=== PATIENT | female | born 1960 | race African-American/Black ===

== ENCOUNTER 2020-03-01 09:54 | Inpatient (IN) | payer MEDICAID, OTHER ==
[~2020-03-01] VITALS: Ht 162.6 cm; Wt 100.6 kg
[2020-03-01 11:04] LABS: Basophils # (auto) 0.1 10 ^3/uL (0-0.2); Basophils % (auto) 0.3 % (0.0-2.0); Eosinophils # (auto) 0 10 ^3/uL (0-0.8); Mean Corpuscular Hgb Conc. 32.2 g/dL (32.0-36.0); Monocytes # (auto) 0.7 10 ^3/uL (0-1.3); White Blood Cell 21.1 10^3/uL (4.4-10.8)
[2020-03-01 11:05] LABS: Eosinophils % (auto) 0.1 % (0.0-7.0); Hematocrit 54.2 % (36.0-46.0); Hemoglobin 17.5 g/dL (12.2-16.2); Lymphocytes # (auto) 1.2 10 ^3/uL (0.4-5.4); Lymphocytes % (auto) 5.5 % (10.0-50.0); Mean Corpuscular Hemoglobin 30.2 pg (28.0-32.0); Mean Corpuscular Volume 93.8 fL (80.0-100.0); Monocytes % (auto) 3.2 % (0.0-12.0); Neutrophils # (auto) 19.2 10 ^3/uL (1.6-8.6); Neutrophils % (auto) 90.9 % (37.0-80.0); Platelet Count (auto) 367 10^3/uL (140-450); Red Blood Cells 5.78 10^6/uL (4.0-5.20)
[2020-03-01 11:18] LABS: Urine Bacteria NONE SEEN /hpf (None Seen); Urine Blood Negative /uL (Negative); Urine Specific Gravity 1.028 (1.001-1.035); Urine WBC 1 /hpf (0 - 5)
[2020-03-01 11:21] LABS: Albumin 4.1 g/dL (3.4-5.0); Calcium 9.9 mg/dL (8.5-10.1)
[2020-03-01 11:29] LABS: BUN/Creatinine Ratio 28.5
[2020-03-01 11:46] LABS: Potassium 5.9 mmol/L (3.5-5.1)
[2020-03-01] MEDS ORDERED: SODIUM CHLORIDE 0.9% 3,000 ML IV ONE (12:00)
[2020-03-01] MEDS ORDERED: InsuLIN R (HUMAN) 100 UNITS in SODIUM CHL 0.9% 99 ML IV SCH (14:42)
[2020-03-01] MEDS ORDERED: DEXTROSE (50%) 50ML SYRG IV PRN ×2 (14:45→17:15)
[2020-03-01] MEDS ORDERED: INSULIN LANTUS (GLARGINE) 1 /0.01ml (100units/ml) SC ONE (14:45)
[2020-03-01] MEDS ORDERED: InsuLIN REG 1unit/0.01ml Soln (100units/ml) IV ONE (14:45)
[2020-03-01] MEDS: ACCU-CHEK COMFORT CURVE STRIP VI SCH ×7 (15:17→23:55)
[2020-03-01] MEDS ORDERED: KETOCONAZOLE 2 % TOPICAL CREAM 15GM TOP ONE (16:00)
[2020-03-01] MEDS ORDERED: FLUCONAZOLE 200MG/100ML 100 ML IV ONE (16:00)
[2020-03-01] MEDS ORDERED: NITROGLYCERIN 0.4 MG SL TAB SL PRN (17:15)
[2020-03-01] MEDS ORDERED: SODIUM CHLORIDE 0.9% 1,000 ML IV ONE (17:15)
[2020-03-01] MEDS ORDERED: MORPHINE SULF INJ 2 MG/ML SYRINGE 1ML IV PRN (17:15)
[2020-03-01] MEDS: InsuLIN R (HUMAN) 100 UNITS in SODIUM CHL 0.9% 99 ML IV SCH ×2 (17:50→18:09)
[2020-03-01 17:57] LABS: Anion Gap 14 (5-15); BUN/Creatinine Ratio 30.1; Blood Urea Nitrogen 37 mg/dL (7-18); Calcium 8.9 mg/dL (8.5-10.1); Carbon Dioxide 22 mmol/L (21-32); Chloride 102 mmol/L (98-107); GFR African American 57 mL/min; GFR Non-African American 47 mL/min; Magnesium 3.3 mg/dL (1.6-2.6); Phosphorus 3.5 mg/dL (2.5-4.90); Potassium 5.1 mmol/L (3.5-5.1); Sodium 138 mmol/L (136-145)
[2020-03-01] MEDS: NYSTATIN (MOUTH-THROAT) 500,000 UNITS/5 ML SUSP MT SCH ×2 (18:16→22:11)
[2020-03-01 18:18] LABS: Glucose 484 mg/dL (74-106)
[2020-03-01] MEDS: PIPERACILLIN-TAZOB 3.375GM 100 ML IV SCH (18:40)
[2020-03-01] MEDS: SODIUM CHLORIDE 0.9% 1,000 ML IV SCH (19:50)
[2020-03-01] MEDS ORDERED: FAMOTIDINE (10MG/ML) 2ML VL IV SCH (22:00)
[2020-03-02] MEDS: PIPERACILLIN-TAZOB 3.375GM 100 ML IV SCH ×5 (00:07→23:46)
[2020-03-02] MEDS: SODIUM CHLORIDE 0.9% 1,000 ML IV SCH ×4 (00:10→22:20)
[2020-03-02] MEDS: ACCU-CHEK COMFORT CURVE STRIP VI SCH ×12 (01:32→21:41)
[2020-03-02 05:26] LABS: Basophils # (auto) 0.1 10 ^3/uL (0-0.2); Basophils % (auto) 0.3 % (0.0-2.0); Eosinophils # (auto) 0 10 ^3/uL (0-0.8); Eosinophils % (auto) 0.1 % (0.0-7.0); Hematocrit 49.7 % (36.0-46.0); Hemoglobin 16.4 g/dL (12.2-16.2); Lymphocytes # (auto) 2.5 10 ^3/uL (0.4-5.4); Lymphocytes % (auto) 13.5 % (10.0-50.0); Mean Corpuscular Hemoglobin 30.2 pg (28.0-32.0); Mean Corpuscular Hgb Conc. 32.9 g/dL (32.0-36.0); Mean Corpuscular Volume 91.6 fL (80.0-100.0); Monocytes # (auto) 1.5 10 ^3/uL (0-1.3); Monocytes % (auto) 7.8 % (0.0-12.0); Neutrophils # (auto) 14.6 10 ^3/uL (1.6-8.6); Neutrophils % (auto) 78.3 % (37.0-80.0); Nucleated Red Blood Cells % 0.1 %; Platelet Count (auto) 247 10^3/uL (140-450); Red Blood Cells 5.43 10^6/uL (4.0-5.20); Red Cell Distribution Width 13.7 % (11.8-14.3); White Blood Cell 18.7 10^3/uL (4.4-10.8)
[2020-03-02 05:53] LABS: Potassium 4.1 mmol/L (3.5-5.1)
[2020-03-02 06:11] LABS: Albumin 3.4 g/dL (3.4-5.0); BUN/Creatinine Ratio 23.6; Bilirubin, Total 1.1 mg/dL (0.2-1.0); Calcium 8.6 mg/dL (8.5-10.1); Magnesium 3.1 mg/dL (1.6-2.6); Phosphorus 1.5 mg/dL (2.5-4.90); Total Protein 7.4 g/dL (6.4-8.2)
[2020-03-02] MEDS: NYSTATIN (MOUTH-THROAT) 500,000 UNITS/5 ML SUSP MT SCH ×4 (06:29→21:40)
[2020-03-02] MEDS ORDERED: SODIUM CHLORIDE 0.9% 500 ML IV ONE (10:30)
[2020-03-02] MEDS ORDERED: INSULIN NPH Isophane (HUMAN) 1unit/0.01ml Susp(100units/ml) SC ONE (10:30)
[2020-03-02] MEDS ORDERED: HYDROmorphone HCL 2 MG/ML VL IV PRN (10:30)
[2020-03-02] MEDS ORDERED: ONDANSETRON HCL 4 MG/2 ML VIAL IV PRN (10:30)
[2020-03-02] MEDS: FAMOTIDINE (10MG/ML) 2ML VL IV SCH ×2 (12:58→21:40)
[2020-03-02] MEDS: InsuLIN REG 1unit/0.01ml Soln (100units/ml) SC SCH ×2 (16:57→21:42)
[2020-03-02] MEDS ORDERED: INSULIN LANTUS (GLARGINE) 1 /0.01ml (100units/ml) SC ONE (17:00)
[2020-03-02] MEDS ORDERED: DEXTROSE (50%) 50ML SYRG IV PRN (17:00)
--- NOTE | 2020-03-02 17:40 | NUR ---
Telemetry admit from ER DIASHALA HIDALGO admitted to Telemetry unit after SBAR received. Patient oriented to primary RN, unit, room, bed, and unit policies regarding patient care and visiting hours. Patient now on continuous telemetry monitoring, tele box # 54 and telemetry reading on arrival to unit is ST 100. Patient placed on bedside oxygen, weighed by bedscale and encouraged to call if they need something. All questions and concerns addressed, patient verbalized understanding.
[2020-03-02 17:55] VITALS: BP 175/102
--- NOTE | 2020-03-02 17:55 | NUR ---
Blood Pressure Patient's blood pressure elevated, 155/90 patient was ambulating in room. Will reassess once patient settles in bed.
--- NOTE | 2020-03-02 18:30 | NUR ---
Elevated Blood Pressure Patient's blood pressure is 175/102. Jackson de oliveira MD
--- NOTE | 2020-03-02 18:52 | NUR ---
Telephone Orders received Telephone orders received from Dr. Mccann, read back and verified and entered in [facility]. Orders will be carried out.
[2020-03-02] MEDS ORDERED: LISINOPRIL 10 MG TAB PO ONE (19:00)
[2020-03-02] MEDS ORDERED: LABETALOL HCL 5 MG/ML 4ML SYRINGE IV PRN (19:00)
[2020-03-02] MEDS ORDERED: LABETALOL HCL 5 MG/ML 4ML SYRINGE IV ONE (19:00)
--- NOTE | 2020-03-02 19:25 | NUR ---
Opening Shift Note Received report from Kaylee ARORA. Assumed care of patient, awake and alert. No S/S of distress/SOB or pain. Instructed on POC and to call for assist PRN, will continue to monitor for changes Q1hr and PRN.
[2020-03-02] MEDS: INSULIN LANTUS (GLARGINE) 1 /0.01ml (100units/ml) SC SCH (21:41)
[2020-03-02 22:18] VITALS: BP 131/77
[2020-03-03 04:51] VITALS: BP 106/74
[2020-03-03] MEDS: SODIUM CHLORIDE 0.9% 1,000 ML IV SCH ×3 (05:10→17:10)
[2020-03-03] MEDS: PIPERACILLIN-TAZOB 3.375GM 100 ML IV SCH ×4 (05:58→23:58)
[2020-03-03] MEDS: NYSTATIN (MOUTH-THROAT) 500,000 UNITS/5 ML SUSP MT SCH ×4 (05:58→22:04)
[2020-03-03] MEDS: ACCU-CHEK COMFORT CURVE STRIP VI SCH ×4 (06:36→22:05)
[2020-03-03] MEDS: InsuLIN REG 1unit/0.01ml Soln (100units/ml) SC SCH ×4 (06:37→22:06)
[2020-03-03 06:45] LABS: Basophils # (auto) 0.1 10 ^3/uL (0-0.2); Basophils % (auto) 0.7 % (0.0-2.0); Eosinophils # (auto) 0.1 10 ^3/uL (0-0.8); Hematocrit 42.3 % (36.0-46.0); Hemoglobin 14.1 g/dL (12.2-16.2); Lymphocytes # (auto) 2.7 10 ^3/uL (0.4-5.4); Lymphocytes % (auto) 19.9 % (10.0-50.0); Mean Corpuscular Hemoglobin 30.3 pg (28.0-32.0); Mean Corpuscular Hgb Conc. 33.3 g/dL (32.0-36.0); Mean Corpuscular Volume 91.1 fL (80.0-100.0); Monocytes # (auto) 1.1 10 ^3/uL (0-1.3); Monocytes % (auto) 7.8 % (0.0-12.0); Neutrophils # (auto) 9.6 10 ^3/uL (1.6-8.6); Neutrophils % (auto) 70.6 % (37.0-80.0); Nucleated Red Blood Cells % 0.1 %; Platelet Count (auto) 207 10^3/uL (140-450); Red Blood Cells 4.64 10^6/uL (4.0-5.20); Red Cell Distribution Width 13.6 % (11.8-14.3); White Blood Cell 13.6 10^3/uL (4.4-10.8)
[2020-03-03 07:01] LABS: Albumin 2.6 g/dL (3.4-5.0); Calcium 8.1 mg/dL (8.5-10.1); Potassium 3.3 mmol/L (3.5-5.1)
[2020-03-03 07:03] LABS: BUN/Creatinine Ratio 14.4
[2020-03-03 07:06] LABS: Bilirubin, Total 1.1 mg/dL (0.2-1.0); Total Protein 5.8 g/dL (6.4-8.2)
--- NOTE | 2020-03-03 07:35 | NUR ---
Opening Shift Note Assumed care of patient, awake and alert. No S/S of distress/SOB or pain. Instructed on POC and to call for assist PRN, will continue to monitor for changes Q1hr and PRN.
[2020-03-03 08:00] VITALS: BP 132/97
[2020-03-03] MEDS: FAMOTIDINE (10MG/ML) 2ML VL IV SCH ×2 (09:39→22:05)
[2020-03-03] MEDS: LISINOPRIL 10 MG TAB PO SCH (09:40)
[2020-03-03] MEDS ORDERED: POTASSIUM CHLORIDE 40 MEQ, LIDOCAINE 1% (LOCAL ANESTH.) 4 ML in SODIUM CHL 0.9% 100 ML IV ONE (11:30)
--- NOTE | 2020-03-03 11:40 | NUR ---
Hospitalist Rounded Dr. Mccann at bedside.
[2020-03-03 12:00] VITALS: BP 152/96
--- NOTE | 2020-03-03 13:29 | NUR ---
Nutrition Assessment Notes Please refer to link for full assessment notes. Est energy needs: 1322-8154 kcals (12-15 kcal/kgBW) Est protein needs: 55-68 gms/day (0.8-1.0 gm/kgBW) Will continue to monitor and reassess prn. Addendum: 03/03/20 at [address] Amended: Links added.
[2020-03-03 16:52] VITALS: BP 145/92
[2020-03-03 22:00] VITALS: BP 119/87
[2020-03-03] MEDS: POTASSIUM CHL 20 Meq TABLET PO SCH (22:04)
[2020-03-03] MEDS: INSULIN LANTUS (GLARGINE) 1 /0.01ml (100units/ml) SC SCH (22:06)
[2020-03-04] MEDS: SODIUM CHLORIDE 0.9% 1,000 ML IV SCH ×3 (00:10→12:02)
[2020-03-04 05:00] VITALS: BP 137/80
[2020-03-04] MEDS: PIPERACILLIN-TAZOB 3.375GM 100 ML IV SCH ×2 (05:58→12:02)
[2020-03-04] MEDS: NYSTATIN (MOUTH-THROAT) 500,000 UNITS/5 ML SUSP MT SCH ×2 (05:59→12:02)
[2020-03-04] MEDS: InsuLIN REG 1unit/0.01ml Soln (100units/ml) SC SCH ×2 (06:40→12:06)
[2020-03-04] MEDS: ACCU-CHEK COMFORT CURVE STRIP VI SCH ×2 (06:40→12:02)
[2020-03-04 08:29] LABS: Basophils # (auto) 0 10 ^3/uL (0-0.2); Basophils % (auto) 0.5 % (0.0-2.0); Eosinophils # (auto) 0.3 10 ^3/uL (0-0.8); Eosinophils % (auto) 2.8 % (0.0-7.0); Hematocrit 45.6 % (36.0-46.0); Hemoglobin 15.1 g/dL (12.2-16.2); Lymphocytes # (auto) 3.6 10 ^3/uL (0.4-5.4); Lymphocytes % (auto) 37.9 % (10.0-50.0); Mean Corpuscular Hemoglobin 30.1 pg (28.0-32.0); Mean Corpuscular Hgb Conc. 33.2 g/dL (32.0-36.0); Mean Corpuscular Volume 90.8 fL (80.0-100.0); Monocytes # (auto) 0.8 10 ^3/uL (0-1.3); Monocytes % (auto) 8.3 % (0.0-12.0); Neutrophils # (auto) 4.8 10 ^3/uL (1.6-8.6); Neutrophils % (auto) 50.5 % (37.0-80.0); Nucleated Red Blood Cells % 0.2 %; Platelet Count (auto) 221 10^3/uL (140-450); Red Blood Cells 5.02 10^6/uL (4.0-5.20); Red Cell Distribution Width 13.6 % (11.8-14.3); White Blood Cell 9.4 10^3/uL (4.4-10.8)
[2020-03-04 08:42] LABS: Albumin 3.2 g/dL (3.4-5.0); Calcium 8.9 mg/dL (8.5-10.1); Potassium 3.4 mmol/L (3.5-5.1)
[2020-03-04 08:46] LABS: BUN/Creatinine Ratio 10.6; Bilirubin, Total 1.1 mg/dL (0.2-1.0); Total Protein 6.9 g/dL (6.4-8.2)
[2020-03-04 09:00] VITALS: BP 152/78
[2020-03-04] MEDS: POTASSIUM CHL 20 Meq TABLET PO SCH (09:57)
[2020-03-04] MEDS: FAMOTIDINE (10MG/ML) 2ML VL IV SCH (09:57)
[2020-03-04] MEDS: LISINOPRIL 10 MG TAB PO SCH (09:58)
[2020-03-04 13:00] VITALS: BP 144/93
[2020-03-04] MEDS ORDERED: POTASSIUM CHL 20 Meq TABLET PO ONE (15:15)
--- NOTE | 2020-03-04 16:09 | NUR ---
Discharge Went over discharge paperwork with patient. Gave prescriptions to patient. Removed IV intact. Removed telemetry and sent to ICU per hospital protocol. Removed ID bands. Family member to vegetable picker patient in private vehicle. Patient took all personal belongings home with her.
== END 2020-03-04 16:22 | disposition home or self-care (01) | DRG 531 ==
LOC: ER 09:54 → TELE 09:55 → TELE-WESTW 03-02 17:50
PROVIDERS: ADMIT Nurse Practitioner Acute Care; ATTEND Internal Medicine
DX: B37.3 Candidiasis of vulva and vagina (principal); N17.0 Acute kidney failure with tubular necrosis; E11.00 Type 2 diabetes mellitus with hyperosmolarity without nonketotic hyperglycemic-hyperosmolar coma (NKHHC); E87.5 Hyperkalemia; E44.1 Mild protein-calorie malnutrition; E66.01 Morbid (severe) obesity due to excess calories; K52.9 Noninfective gastroenteritis and colitis, unspecified; E86.0 Dehydration; E11.65 Type 2 diabetes mellitus with hyperglycemia; D72.828 Other elevated white blood cell count; I10 Essential (primary) hypertension; Z68.38 Body mass index [BMI] 38.0-38.9, adult; Z91.19 Patient's noncompliance with other medical treatment and regimen
CPT/HCPCS: 36415; 71045; 80048; 80053; 81001; 82010; 82962; 83735; 83930; 84100; 85025; 93005; 96361; 96365; 96372; G0378; J1450; J1815; J2001; J2543; J3490

== ENCOUNTER → 2024-02-16 | Outpatient (CLI) | payer MEDICAID ==
[~2024-02-16] VITALS: Ht 162.6 cm; Wt 104.3 kg
[~2024-02-16] MED LIST: ADENOSINE 88 MG in GIVE UN-DILUTED 0 ML IV ONE; ADENOSINE 90 MG/30 ML INJ IV ONE
== END | disposition home or self-care (01) ==
LOC: Rad HDHVI 10:01
PROVIDERS: ATTEND Internal Medicine Cardiovascular Disease
DX: I25.10 Atherosclerotic heart disease of native coronary artery without angina pectoris (principal); R06.02 Shortness of breath; E78.00 Pure hypercholesterolemia, unspecified; I10 Essential (primary) hypertension; E11.9 Type 2 diabetes mellitus without complications; F17.210 Nicotine dependence, cigarettes, uncomplicated
CPT/HCPCS: 78452; 93005; 96374; 96375; A9500; J0153